=== PATIENT | male | born 1975 | race Caucasian/White ===

== ENCOUNTER 2022-02-15 20:48 | Emergency (ER) | payer OTHER | END 2022-02-15 23:01 | disposition home or self-care (01) | LOC: FER 20:48 | DX: M25.562 Pain in left knee (principal); F17.210 Nicotine dependence, cigarettes, uncomplicated; Z28.310 Unvaccinated for COVID-19; X50.1XXA Overexertion from prolonged static or awkward postures, initial encounter; Y93.64 Activity, baseball; Y92.89 Other specified places as the place of occurrence of the external cause | CPT/HCPCS: 73560; J1885 ==